=== PATIENT | male | born 1995 | race Caucasian/White ===

== ENCOUNTER → 2017-01-25 | Outpatient (CLI) | payer BC ==
[~2017-01-25] MED LIST: CETI10TA84 PO; DOXY-300 PO; MULT-506 PO; OMEG10007 PO; ONDA4TAB10 SL; OXYC-57 PO; SERT50TA PO
[2017-01-25 13:17] LABS: HEMATOCRIT 49.5 % (42-52); MEAN CELL VOLUME 90.7 fL (80-100); MEAN CORPUSCULAR HEMOGLOBIN 30.6 pg (25-34); MEAN CORPUSCULAR HGB CONC 33.7 g/dl (32-36); MEAN PLATELET VOLUME 9.8 fL (7.4-10.4); PLATELET COUNT 247 K/uL (130-400); RED BLOOD COUNT 5.46 M/uL (4.7-6.1); WHITE BLOOD COUNT 7.62 K/uL (4.8-10.8)
[2017-01-25 13:56] LABS: ALT/SGPT 68 U/L (12-78); AST/SGOT 21 U/L (15-37); BLOOD UREA NITROGEN 14 mg/dl (7-18); BUN/CREATININE RATIO 14.4 (10-20); CALCIUM 9.3 mg/dl (8.5-10.1); CARBON DIOXIDE 30 mmol/L (21-32); CHLORIDE 107 mmol/L (98-107); CREATININE 0.97 mg/dl (0.60-1.40); GLUCOSE 90 mg/dl (70-99); POTASSIUM 4.1 mmol/L (3.5-5.1); SODIUM 143 mmol/L (136-145)
[2017-01-25 14:07] LABS: ALB/GLOB RATIO 1.4 (0.9-2); ALKALINE PHOSPHATASE 83 U/L (45-117); CHOLESTEROL 115 mg/dl (0-200); CHOLESTEROL/HDL RATIO 2.6; HDL CHOLESTEROL 45 mg/dl; LDL CHOLESTEROL CALCULATED 53 mg/dl; THYROID STIMULATING HORMONE 0.987 uIu/ml (0.300-4.500); TRIGLYCERIDES 83 mg/dl (0-150); VERY LOW DENSITY LIPOPROT CALC 17 mg/dl
== END | disposition home or self-care (01) ==
LOC: C.LAB1850 12:23
PROVIDERS: ATTEND Internal Medicine
DX: R53.83 Other fatigue (principal); F43.23 Adjustment disorder with mixed anxiety and depressed mood

== ENCOUNTER 2017-03-22 19:02 | Emergency (ER) | payer BC ==
[~2017-03-22] VITALS: Ht 190.5 cm; Wt 105.3 kg
[~2017-03-22 19:02] MED LIST changes: -DOXY-300 PO; -MULT-506 PO; -OMEG10007 PO; -ONDA4TAB10 SL; -OXYC-57 PO; -SERT50TA PO
[2017-03-22 19:05] VITALS: TEMP 36.8; Ht 190.5 cm; Wt 105.3 kg
[2017-03-22] MEDS ORDERED: ONDANSETRON INJ 2 MG/ML 2 ML VIAL IV STA (19:20)
[2017-03-22] MEDS ORDERED: SODIUM CHLORIDE 0.9% 1000ML 1,000 ML IV STA (19:20)
--- NOTE | 2017-03-22 19:21 | EMERGENCY ROOM VISIT NOTE ---
History Report prepared by Akila: Kingsley Gonzalez Under the Supervision of: Dr. Chepe Hines M.D. First contact with patient: 19:10 Chief Complaint: ABDOMINAL PAIN Stated Complaint: STOMACH PAIN, HEADACHE, DIZZINESS, CONFUSIN History of Present Illness The patient is a 21 year old male who presents to the Emergency Room with persistent abdominal pain that started earlier today. The patient describes extreme stabbing pain in the upper abdomen. 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 At that time he also became lightheaded and nauseous. The patient states that pain is similar to when he had appendicitis. He no longer has his appendix but does still have his gallbladder. The patient notes that he has had memory problems for the past several weeks. He is currently on Doxycycline for a rash that broke out on his skin (prescribed by father who is a physician). He had yellowish discoloration on his abdomen a few days ago that is currently resolved. The patient is on Zoloft for anxiety and depression. Source of History: patient Onset: today Position: abdomen (upper) Symptom Intensity: extreme Quality: other (stabbing) Timing: other (persistent) Associated Symptoms: + nausea, + rash Review of Systems See HPI for pertinent positives & negatives. A total of 10 systems reviewed and were otherwise negative. Past Medical & Surgical Surgical Problems: (1) H/O wisdom tooth extraction (2) S/P appy Family History Cancer Heart disease Hypertension Social History Smoking Status: Never Smoker Alcohol Use: none Drug Use: none Marital Status: single Housing Status: lives with roommate Occupation Status: student Current/Historical Medications Scheduled Cetirizine (Zyrtec), 10 MG PO QAM Doxycycline (Monohydrate) (Doxycycline), 100 MG PO BID Fish Oil (Sherwood-3), 1 CAP PO DAILY Multivitamin (Multivitamin), 1 TAB PO DAILY Ondasetron Odt (Zofran Odt), 4 MG SL Q6H Sertraline (Zoloft), 50 MG PO DAILY Scheduled PRN Oxycodone/Acetaminophen 5MG/325MG (Percocet 5MG/325MG), 1-2 TAB PO Q4H PRN for Pain Allergies Coded Allergies: No Known Allergies (Unverified , 03/06/16) Physical Exam Vital Signs Date Time Temp Pulse Resp B/P (MAP) Pulse Ox O2 Delivery O2 Flow Rate FiO2 03/22/17 21:37 74 18 140/83 96 Room Air 03/22/17 21:11 76 03/22/17 19:05 36.8 85 18 141/84 96 Room Air Physical Exam GENERAL: Patient is a healthy-appearing well-nourished male HEAD: Normocephalic atraumatic EYES: Ocular movements intact pupils equal and react to light OROPHARYNX mucous membranes are moist no exudates present no erythema or edema present NECK: Supple no nuchal rigidity CHEST: Good equal expansion LUNGS: Clear and equal to auscultation CARDIAC: Normal S1 and S2 ABDOMEN: Soft nontender no guarding BACK: No CVA tenderness EXTREMITIES: No pain upon palpation normal muscle strength in all groups no clubbing cyanosis or edema NEURO: Patient is following commands and answering questions appropriately. Alert and oriented x3 Cranial Nerves 2-12 grossly intact Medical Decision & Procedures ER Provider Diagnostic Interpretation: Radiology results as stated below per my review and radiologist interpretation: ABDOMEN AND PELVIS CT WITH IV CONTRAST CT DOSE: 464.65 mGy.cm HISTORY: Pt c/o epigastric pain TECHNIQUE: Multiaxial CT images of the abdomen and pelvis were performed following the use of intravenous contrast. COMPARISON STUDY: None. FINDINGS: The lung bases are clear. No pneumoperitoneum. No pneumatosis. A 5 mm hypodense lesion within the right hepatic lobe is too small to characterize. The gallbladder, adrenal glands, right kidney, pancreas, and spleen are unremarkable. Malrotated left kidney. No hydronephrosis. No retroperitoneal lymphadenopathy. Normal caliber abdominal aorta. No dilated small bowel to suggest an obstruction. Postoperative changes within the right lower quadrant. Suspect a prior appendectomy. However, there is a small residual appendiceal stump remaining. The ascending colon, transverse colon, and descending colon are distended and partially stool filled. The ascending colon measures up to 8 cm in diameter. However, no evidence for large bowel obstruction. Normal appendix. No free fluid. IMPRESSION: 1. The majority of the colon is distended and filled with gas and stool. This favors an ileus. 2. No evidence for bowel obstruction. 3. There appears to be evidence for prior appendectomy. However, a small appendiceal stump remains. Electronically signed by: Fredrick Noyola M.D. 03/22/2017 8:38 PM Dictated Date/Time: 03/22/2017 8:28 PM Laboratory Results 03/22/17 19:40 Red Blood Count 5.46, Mean Corpuscular Volume 89.2, Mean Corpuscular Hemoglobin 31.7, Mean Corpuscular Hemoglobin Concent 35.5, Mean Platelet Volume 10.0, Neutrophils (%) (Auto) 76.9, Lymphocytes (%) (Auto) 15.7, Monocytes (%) (Auto) 5.8, Eosinophils (%) (Auto) 1.4, Basophils (%) (Auto) 0.1, Neutrophils # (Auto) 6.99, Lymphocytes # (Auto) 1.43, Monocytes # (Auto) 0.53, Eosinophils # (Auto) 0.13, Basophils # (Auto) 0.01 03/22/17 19:40 Test 03/22/17 19:40 03/22/17 19:51 White Blood Count 9.10 K/uL (4.8-10.8) Red Blood Count 5.46 M/uL (4.7-6.1) Hemoglobin 17.3 g/dL (14.0-18.0) Hematocrit 48.7 % (42-52) Mean Corpuscular Volume 89.2 fL (80-100) Mean Corpuscular Hemoglobin 31.7 pg (25-34) Mean Corpuscular Hemoglobin Concent 35.5 g/dl (32-36) Platelet Count 223 K/uL (130-400) Mean Platelet Volume 10.0 fL (7.4-10.4) Neutrophils (%) (Auto) 76.9 % Lymphocytes (%) (Auto) 15.7 % Monocytes (%) (Auto) 5.8 % Eosinophils (%) (Auto) 1.4 % Basophils (%) (Auto) 0.1 % Neutrophils # (Auto) 6.99 K/uL (1.4-6.5) Lymphocytes # (Auto) 1.43 K/uL (1.2-3.4) Monocytes # (Auto) 0.53 K/uL (0.11-0.59) Eosinophils # (Auto) 0.13 K/uL (0-0.5) Basophils # (Auto) 0.01 K/uL (0-0.2) RDW Standard Deviation 41.1 fL (36.4-46.3) RDW Coefficient of Variation 12.8 % (11.5-14.5) Immature Granulocyte % (Auto) 0.1 % Immature Granulocyte # (Auto) 0.01 K/uL (0.00-0.02) Est Creatinine Clear Calc Drug Dose 116.0 ml/min Estimated GFR () 89.1 Estimated GFR (Non- 76.9 BUN/Creatinine Ratio 16.4 (10-20) Calcium Level 9.3 mg/dl (8.5-10.1) Total Bilirubin 1.9 mg/dl (0.2-1) Direct Bilirubin 0.4 mg/dl (0-0.2) Aspartate Amino Transf (AST/SGOT) 38 U/L (15-37) Alanine Aminotransferase (ALT/SGPT) 64 U/L (12-78) Alkaline Phosphatase 88 U/L (45-117) Total Creatine Kinase 641 U/L (39-308) Total Protein 7.6 gm/dl (6.4-8.2) Albumin 4.6 gm/dl (3.4-5.0) Lipase 82 U/L (73-393) Lyme Disease IgG Antibody NEG (NEG) Lyme Disease IgM Antibody NEG (NEG) Monoscreen NEG (NEG) Bedside Hemoglobin 17.0 g/dl (14.0-18.0) Bedside Hematocrit 50 % (42-52) Bedside Sodium 143 mEq/L (135-144) Bedside Potassium 4.3 mEq/L (3.3-5.0) Bedside Chloride 104 mEq/L (101-112) Bedside Total CO2 26 mEq/l (24-31) Anion Gap 18.0 mmol/L (16-25) Bedside Blood Urea Nitrogen 22 mg/dl (7-18) Bedside Creatinine 1.2 mg/dl (0.6-1.3) Bedside Glucose (other) 83 mg/dl (70-99) Bedside Ionized Calcium (Guy) 1.22 mmol/l (1.12-1.32) Labs reviewed by ED physician. Medications Administered Medications (Trade) Dose Ordered Sig/Rubens Route Start Time Stop Time Status Last Admin Dose Admin Sodium Chloride 1,000 ml @ 999 mls/hr Q1H1M STAT IV 03/22/17 19:20 03/22/17 20:20 DC 03/22/17 19:20 999 MLS/HR Ondansetron HCl (Zofran Inj) 4 mg NOW STAT IV 03/22/17 19:20 03/22/17 19:23 DC 03/22/17 19:42 4 MG Hydromorphone HCl (Dilaudid Inj) 1 mg NOW STAT IV 03/22/17 19:45 03/22/17 19:46 DC 03/22/17 20:03 1 MG Hydromorphone HCl (Dilaudid Inj) 1 mg NOW STAT IV 03/22/17 21:10 03/22/17 21:13 DC 03/22/17 21:26 1 MG Metoclopramide HCl (Reglan Inj) 10 mg NOW STAT IV 03/22/17 21:10 03/22/17 21:13 DC 03/22/17 21:25 10 MG Oxycodone/ Acetaminophen (Percocet 5/ 325MG Home Pack) 1 homepack UD ONCE PO 03/22/17 21:15 03/22/17 21:16 DC 03/22/17 21:27 1 HOMEPACK Magnesium Citrate (Citrate Of Magnesia Soln) 296 ml NOW STAT PO 03/22/17 21:10 03/22/17 21:13 DC 03/22/17 21:26 296 ML Ondansetron HCl (ZOFRAN ODT 4MG Home Pack) 1 homepack UD ONCE PO 03/22/17 21:15 03/22/17 21:16 DC 03/22/17 21:26 1 HOMEPACK ED Course 1914: Past medical records reviewed. The patient was evaluated in room B4b. A complete history and physical examination was performed. 1919: Zofran 4 mg IV, NSS 1000 ml @ 999 mls/hr. 1944: Dilaudid 1 mg IV. 2109: Magnesium Citrate 296 ml PO, Reglan 10 mg IV, Dilaudid 1 mg IV. 2114: Zofran Odt 4 mg PO homepack, Percocet 5/325 mg PO homepack. 2119: Reassessed the patient. Discussed the findings with the patient. He understands the discharge instructions. The patient is ready for discharge. Medical Decision Differential diagnosis: Etiologies such as appendicitis, diverticulitis, PUD, biliary pathology, UTI, pancreatitis, obstruction, mesenteric ischemia, aortic pathology, infections, inflammatory bowel disease, renal colic, as well as others were entertained. Blood Pressure Screening: Patient was found to have an elevated blood pressure and was referred to their primary care doctor for recheck and further treatment Medication Reconciliation: I attest that I have personally reviewed the patient' s current medication list This is a 21-year-old male who presents emergency department complaining of severe epigastric pain. He has a soft benign examination and is nontender on examination. An IV was established, patient given normal saline bolus, Toradol. The patient requested further pain medication and appears to have waxing and waning symptoms. His CAT scan is concerning for constipation and I believe that would fit with his symptoms. He does have a slight elevation in his CK which would be consistent with a workout. The patient was given magnesium citrate to help move his bowels at home. Patient was in agreement with the treatment plan. Impression Primary Impression: Abdominal pain Additional Impressions: Dehydration Constipation Scribe Attestation The scribe's documentation has been prepared under my direction and personally reviewed by me in its entirety. I confirm that the note above accurately reflects all work, treatment, procedures, and medical decision making performed by me. Departure Information Dispostion Home / Self-Care Prescriptions Ondasetron Odt (ZOFRAN ODT) 4 Mg Tab 4 MG SL Q6H for Nausea, #6 TAB Prov: Chepe Hines MD 03/22/17 Oxycodone/Acetaminophen 5MG/325MG (PERCOCET 5MG/325MG) Tab 1-2 TAB PO Q4H Y for Pain, #14 TAB Prov: Chepe Hines MD 03/22/17 Referrals Carolina Villalobos M.D. (PCP) Forms HOME CARE DOCUMENTATION FORM, IMPORTANT VISIT INFORMATION, School Instructions, Work Instructions Patient Instructions Abdominal Pain - [facility], ED Dehydration, ED Diet Clear Liquid, Hypertension Dc, My [facility] Additional Instructions Take 1/2 bottle of Mag Citrate Repeat second half in six hours Clear liquid diet next 48 hours You were found to have an elevated blood pressure today (>120 sytolic or >90 diastolic). Per medicare guidelines, you need to follow up with this blood pressure screening with your Primary Care Physician (PCP). For a new PCP call [phone]. You received narcotic or benzodiazepene medication while in the emergency room today. Do not drive, operate heavy machinery, or drink alcohol under the influence of this medication. Take 600 mg Ibuprofen every 6 hours Take Percocet for breakthrough pain You have been examined and treated today on an emergency basis only. This is not a substitute for, or an effort to provide, complete comprehensive medical care. It is impossible to recognize and treat all injuries or illnesses in a single emergency department visit. It is therefore important that you follow up closely with Dr Villalobos. Call as soon as possible for an appointment. Thank you for your time and consideration. I look forward to speaking with you again soon. Please don't hesitate to call us if you have any questions. Problem Qualifiers Primary Impression: Abdominal pain Abdominal location: generalized Qualified Codes: R10.84 - Generalized abdominal pain Additional Impressions: Constipation Constipation type: unspecified constipation type Qualified Codes: K59.00 - Constipation, unspecified
[2017-03-22] MEDS ORDERED: HYDROmorphone INJ 1 MG/ML SYR IV STA ×2 (19:45→21:10)
[2017-03-22] MEDS ORDERED: DOXY-300 PO (20:01)
[2017-03-22] MEDS ORDERED: OMEG10007 PO (20:01)
[2017-03-22] MEDS ORDERED: SERT50TA PO (20:01)
[2017-03-22] MEDS ORDERED: MULT-506 PO (20:01)
[2017-03-22 20:03] LABS: BASO % 0.1 %; BASO ABS # 0.01 K/uL (0-0.2); COMPLETE YES; EOS % 1.4 %; HEMATOCRIT 48.7 % (42-52); IG% 0.1 %; LYMPH % 15.7 %; LYMPH ABS # 1.43 K/uL (1.2-3.4); MEAN CELL VOLUME 89.2 fL (80-100); MEAN CORPUSCULAR HEMOGLOBIN 31.7 pg (25-34); MEAN CORPUSCULAR HGB CONC 35.5 g/dl (32-36); MONO % 5.8 %; NEUT % 76.9 %; PLATELET COUNT 223 K/uL (130-400); RED BLOOD COUNT 5.46 M/uL (4.7-6.1)
[2017-03-22 20:05] LABS: ISTAT CREATININE 1.2 mg/dl (0.6-1.3); ISTAT IONIZED CALCIUM 1.22 mmol/l (1.12-1.32)
[2017-03-22] MEDS ORDERED: OPTIRAY 320 IV PRN (20:30)
[2017-03-22 20:31] LABS: BUN/CREATININE RATIO 16.4 (10-20); CALCIUM 9.3 mg/dl (8.5-10.1); CREATININE 1.3 mg/dl (0.60-1.40); POTASSIUM 4.2 mmol/L (3.5-5.1)
--- NOTE | 2017-03-22 20:39 | DIAGNOSTIC IMAGING REPORT ---
ABDOMEN AND PELVIS CT WITH IV CONTRAST CT DOSE: 464.65 mGy.cm HISTORY: Pt c/o epigastric pain TECHNIQUE: Multiaxial CT images of the abdomen and pelvis were performed following the use of intravenous contrast. COMPARISON STUDY: None. FINDINGS: The lung bases are clear. No pneumoperitoneum. No pneumatosis. A 5 mm hypodense lesion within the right hepatic lobe is too small to characterize. The gallbladder, adrenal glands, right kidney, pancreas, and spleen are unremarkable. Malrotated left kidney. No hydronephrosis. No retroperitoneal lymphadenopathy. Normal caliber abdominal aorta. No dilated small bowel to suggest an obstruction. Postoperative changes within the right lower quadrant. Suspect a prior appendectomy. However, there is a small residual appendiceal stump remaining. The ascending colon, transverse colon, and descending colon are distended and partially stool filled. The ascending colon measures up to 8 cm in diameter. However, no evidence for large bowel obstruction. Normal appendix. No free fluid. IMPRESSION: 1. The majority of the colon is distended and filled with gas and stool. This favors an ileus. 2. No evidence for bowel obstruction. 3. There appears to be evidence for prior appendectomy. However, a small appendiceal stump remains. Electronically signed by: Fredrick Noyola M.D. 03/22/2017 8:38 PM Dictated Date/Time: 03/22/2017 8:28 PM
[2017-03-22 20:52] LABS: LYME DISEASE AB IGG NEG (NEG); LYME DISEASE AB IGM NEG (NEG)
[2017-03-22] MEDS ORDERED: MAGNESIUM CITRATE 296 ML/BTL PO STA (21:10)
[2017-03-22] MEDS ORDERED: METOCLOPRAMIDE HCL INJ 5 MG/ML 2 ML VIAL IV STA (21:10)
[2017-03-22] MEDS ORDERED: ONDANSETRON HOME PACK 4MG OD TAB PO ONE (21:15)
[2017-03-22] MEDS ORDERED: PERCOCET HOME PACK PO ONE (21:15)
[2017-03-22] MEDS ORDERED: ONDA4TAB10 SL (21:16)
[2017-03-22] MEDS ORDERED: OXYC-57 PO (21:16)
[2017-03-22 21:37] VITALS: BP 140/83; PULSE 74; O2SAT 96
[2017-03-25 15:49] LABS: EBV EARLY ANTIGEN AB <9.00 U/ML; EPSTEIN BARR VIR CAPSID IGG <18.00 U/ML
== END 2017-03-22 21:51 | disposition home or self-care (01) ==
LOC: C.EDB 19:03
DX: R10.13 Epigastric pain (principal); E86.0 Dehydration; K59.00 Constipation, unspecified; F41.9 Anxiety disorder, unspecified; F32.9 Major depressive disorder, single episode, unspecified; Z82.49 Family history of ischemic heart disease and other diseases of the circulatory system

== ENCOUNTER → 2017-05-24 | Outpatient (CLI) | payer BC ==
[~2017-05-24] MED LIST changes: +DOXY-300 PO; +MULT-506 PO; +OMEG10007 PO; +ONDA4TAB10 SL; +OXYC-57 PO; +SERT50TA PO
== END | disposition home or self-care (01) ==
LOC: C.PATHSPEC 17:22
PROVIDERS: ATTEND Plastic Surgery
DX: D48.5 Neoplasm of uncertain behavior of skin (principal)

== ENCOUNTER → 2017-06-11 | Outpatient (CLI) | payer BC | END | disposition home or self-care (01) | LOC: C.PATHSPEC 13:02 | PROVIDERS: ATTEND Plastic Surgery | DX: L90.5 Scar conditions and fibrosis of skin (principal); L72.0 Epidermal cyst ==